=== PATIENT | male | born 1965 | race Caucasian/White ===

== ENCOUNTER → 2017-02-26 09:26 | Outpatient (CLI) | payer OTHER | END | disposition home or self-care (01) | LOC: D.RAD 09:26 | DX: Z02.71 Encounter for disability determination (principal) ==

== ENCOUNTER 2018-05-16 12:01 | Emergency (ER) | payer MEDICARE ==
[~2018-05-16] VITALS: Ht 188 cm; Wt 100.0 kg
[2018-05-16 12:04] VITALS: Ht 188 cm; Wt 100.0 kg
[2018-05-16] MEDS ORDERED: GLUCOPHAGE500 MG PO (12:16)
[2018-05-16] MEDS ORDERED: PEPCID40 MG (12:16)
[2018-05-16] MEDS ORDERED: SEROQUEL400 MG PO (12:16)
[2018-05-16] MEDS ORDERED: AMBIEN10 MG (12:16)
[2018-05-16] MEDS ORDERED: GLIPIZIDE10 MG (12:16)
[2018-05-16] MEDS ORDERED: LITHIUM CI8 MEQ/5 ML PO (12:16)
[2018-05-16] MEDS ORDERED: DILT-XR240 MG (12:17)
[2018-05-16] MEDS ORDERED: ROBAXIN500 MG (12:17)
[2018-05-16] MEDS ORDERED: CIPRO500 MG PO (12:17)
[2018-05-16] MEDS ORDERED: CARAFATE1 G (12:17)
[2018-05-16 12:39] LABS: BASOPHILS 0.2 % (0-2); EOSINOPHILS 2.3 % (0-7); HEMATOCRIT 49.3 % (42.0-54.0); HEMOGLOBIN 17.7 g/dL (13.5-17.5); IMMATURE GRANULOCYTES 0.4 % (0-5); LYMPHOCYTES 29.4 % (15-50); MCH 34.8 pg (26.0-34.0); MCHC 35.9 g/dL (31.0-37.0); MCV 96.9 fL (80.0-100.0); MEAN PLATELET VOLUME 11.9 fL (7.4-10.4); MONOCYTES 6.1 % (2-11); NEUTROPHILS 61.6 % (40-80); PLATELET COUNT 145 10x3/uL (130-400); RBC 5.09 10x6/uL (4.20-6.10); RDW 13.9 % (11.5-14.5); WBC 14.5 10x3/uL (4.8-10.8)
[2018-05-16 12:53] LABS: ALBUMIN 3.8 g/dL (3.4-5.0); ALKALINE PHOSPHATASE 166 U/L (46-116); ALT (SGPT) 65 U/L (10-68); BILIRUBIN - TOTAL 0.51 mg/dL (0.2-1.3); CALC OSMOLALITY 283 mosm/kg (275-300); CALCIUM 8.7 mg/dL (8.5-10.1); CARBON DIOXIDE 23.4 mmol/L (21.0-32.0); CHLORIDE - SERUM 107 mmol/L (98-107); CREATININE - SERUM 0.8 mg/dL (0.6-1.3); POTASSIUM - SERUM 4.3 mmol/L (3.5-5.1); SODIUM 142 mmol/L (136-145); UREA NITROGEN 10 mg/dL (7-18); eGFR NON AFRICAN AMERICAN > 90 mL/min (90-120)
[2018-05-16 12:54] LABS: GLUCOSE 132 mg/dL (74-106)
[2018-05-16 12:57] LABS: LITHIUM 0.26 mmol/L (0.60-1.20); SALICYLATES 3.9 mg/dL (2.8-20.0)
[2018-05-16 13:48] LABS: APPEARANCE CLEAR (CLEAR); BILIRUBIN NEGATIVE (NEGATIVE); COLOR YELLOW (YELLOW); GLUCOSE 1000 mg/dL (NEGATIVE); KETONE NEGATIVE (NEGATIVE); NITRITE NEGATIVE (NEGATIVE); PROTEIN NEGATIVE (NEGATIVE); SPECIFIC GRAVITY 1.015 (1.005-1.020); UROBILINOGEN NORMAL (NORMAL)
[2018-05-16 13:53] LABS: UDS - AMPHET NEGATIVE QUAL (NEGATIVE); UDS - BARB NEGATIVE QUAL (NEGATIVE); UDS - BENZO NEGATIVE QUAL (NEGATIVE); UDS - COCAINE NEGATIVE QUAL (NEGATIVE); UDS - OPIATE NEGATIVE QUAL (NEGATIVE); UDS - PCP NEGATIVE QUAL (NEGATIVE); UDS - THC NEGATIVE QUAL (NEGATIVE)
[2018-05-16] MEDS ORDERED: LANTUS SOL100 UNIT/1 SQ (20:46)
[2018-05-16 23:00] VITALS: BP 154/89
== END 2018-05-16 23:02 ==
LOC: D.ER 12:01
PROVIDERS: Family Medicine
DX: T14.91XA Suicide attempt, initial encounter (principal); X83.8XXA Intentional self-harm by other specified means, initial encounter; Y93.89 Activity, other specified; Y92.019 Unspecified place in single-family (private) house as the place of occurrence of the external cause; F32.9 Major depressive disorder, single episode, unspecified; Z91.19 Patient's noncompliance with other medical treatment and regimen; F17.200 Nicotine dependence, unspecified, uncomplicated